=== PATIENT | female | born 1995 | race Caucasian/White ===

== ENCOUNTER → 2017-10-20 | Day surgery (SDC) | payer BC ==
[2017-10-13 13:08] LABS: BASOPHILS # (AUTO) 0.1 (0.0-0.1); BASOPHILS % 0.7 % (0.0-1.0); EOSINOPHILS # (AUTO) 0.1 (0.0-0.4); EOSINOPHILS % 0.9 % (0.0-6.0); HEMATOCRIT 36.9 % (34.2-44.1); HEMOGLOBIN 12.7 g/dL (12.0-16.0); LYMPHOCYTES # (AUTO) 2.2 (1.0-3.2); LYMPHOCYTES % 29.2 % (18.0-39.1); MEAN CORPUSCULAR HGB CONC 34.4 g/dL (31-35); MONOCYTES # (AUTO) 0.7 (0.2-0.8); MONOCYTES % 9.1 % (4.4-11.3); NEUTROPHILS # (AUTO) 4.6 (2.1-6.9); NEUTROPHILS % 59.8 % (38.7-80.0); PLATELET COUNT 322 x10e3/uL (140-360); RED CELL DISTRIBUTION WIDTH 11.9 % (11.7-14.4)
[~2017-10-20] MED LIST: BUPIVACAINE 0.25%/EPI 30ML SDV INJ ONE; DEXAMETHASONE SOD PHOS INJ 4 MG/ML VIAL ONE; FENTANYL CITRATE/PF 100MCG/2 ML INJ ONE; GLYCOPYRROLATE INJ 1MG/ 5 ML SYR ONE; KETOROLAC TROMETHAMINE 30 MG/ML VIAL ONE; LIDOCAINE HCL 2% LOCAL INJ 5 ML SDV VIAL INJ ONE; MIDAZOLAM HCL 2 MG/2 ML VIAL ONE; NEOSTIGMINE 1 MG/ML 10ML VIAL ONE; NEOSTIGMINE 5 MG/5ML SYR ONE; ONDANSETRON HCL INJ 2 MG/ML VIAL ONE; PROPOFOL IV EMULSION 10 MG/ML 20 ML VIAL ONE; ROCURONIUM BROMIDE 10 MG/ML 5ML VIAL ONE; SCOPOLAMINE 1.5 MG PATCH ONE; SEVOFLURANE INHAL SOLN 250 ML PEN BTL ONE
--- NOTE | 2017-10-20 12:50 | Operative Report ---
DATE OF PROCEDURE: October 20, 2017 PREOPERATIVE DIAGNOSIS: Large mass of the posterior neck and occipital scalp. POSTOPERATIVE DIAGNOSIS: Large mass of the posterior neck and occipital scalp. OPERATION PERFORMED: Resection of large mass of the posterior neck and occipital scalp with multiple-layer closure. ANESTHESIA: General. COMPLICATIONS: None. ESTIMATED BLOOD LOSS: Minimal. DESCRIPTION OF PROCEDURE: With the patient lying in bed in the prone position under good general endotracheal anesthesia, the back of the neck and the scalp were prepped Hibiclens solution and draped in the usual manner. There was a large mass at the upper part of the posterior neck and the occipital region of the scalp. An elliptical incision was then made from one side of the neck all the way across to the other to remove the overlying skin over the large mass. It was taken down through the subcutaneous tissue and through the superficial fascia and underneath the superficial fascia there was a well-encapsulated multilobular lipomatous mass which was stuck to the muscles and the fascia posteriorly. This was slowly and carefully from all of the surrounding structures and totally and completely removed and sent for pathological examination. The mass was about 10 x 10 cm. After this was done, hemostasis was then ascertained. The subcutaneous tissue was then reapproximated with interrupted sutures of 2-0 Vicryl and the skin was closed with interrupted vertical mattress sutures of 2-0 Prolene. A dressing was applied. The sponge, lap and needle count was correct. Patient tolerated the procedure well and returned to the recovery room in stable condition. Job#: [id number] [email or web address]
== END | disposition home or self-care (01) ==
LOC: OR 06:58
PROVIDERS: ATTEND Surgery
DX: D17.79 Benign lipomatous neoplasm of other sites (principal); J45.909 Unspecified asthma, uncomplicated; G43.A0 Cyclical vomiting, in migraine, not intractable; F42.9 Obsessive-compulsive disorder, unspecified; F41.9 Anxiety disorder, unspecified; Z88.0 Allergy status to penicillin; Z01.812 Encounter for preprocedural laboratory examination
CPT/HCPCS: 21554; 36415; 81025; 85025; 88304; J1100; J1885; J2001; J2250; J2405; J2710; J3490